=== PATIENT | male | born 1970 | race American Indian/Alaskan Native ===

== ENCOUNTER 2016-09-16 10:58 | Emergency (ER) | payer OTHER ==
--- NOTE | 2016-09-16 16:30 | Emergency Department Report ---
ED Extremity Problem HPI - General Chief complaint: Pain General Stated complaint: SWELLING/PAIN IN JOINTS/RIGHT FOOT Time Seen by Provider: 09/16/16 16:24 Source: patient Mode of arrival: Ambulatory Limitations: Physical Limitation (slight limp with walk states due to pain) - History of Present Illness Initial comments: Patient presents with right great toe and right wrist pain and mild swelling. He states that he has had gout in the past and this is his typical presentation. He denies any injuries. He has not had a flare in about one year , he states when he does get a flare he takes colchicine and a "shot" that resolves it. MD Complaint: extremity pain, extremity swelling, joint paint -: Sudden Location: right, toe (great), other (wrist) History of Same: Yes Severity scale (0 -10): 10 Quality: stabbing, sharp Consistency: constant Improves with: nothing Worsens with: weight bearing Associated Symptoms: denies other symptoms - Related Data Home Medications Medication Instructions Recorded Confirmed Last Taken Isosorbide Dinitrate [Isordil 5 mg PO DAILY 09/16/16 09/16/16 09/16/16 Titradose] Metoprolol [Lopressor] 100 mg PO BID 09/16/16 09/16/16 09/16/16 cloNIDine [Catapres] 0.1 mg PO BID 09/16/16 09/16/16 09/16/16 hydrALAZINE [Apresoline TAB] 100 mg PO QID 09/16/16 09/16/16 09/16/16 Previous Rx's Medication Instructions Recorded Last Taken Type Colchicine 0.6 mg PO DAILY PRN #4 tablet 09/16/16 Unknown Rx Allergies Allergy/AdvReac Type Severity Reaction Status Date / Time ceftriaxone sodium Allergy Hives Verified 09/16/16 16:43 [From Rocephin] ED Review of Systems ROS: Stated complaint: SWELLING/PAIN IN JOINTS/RIGHT FOOT Other details as noted in HPI Constitutional: denies: chills, fever Eyes: denies: eye pain, eye discharge, vision change ENT: denies: ear pain, throat pain Respiratory: denies: cough, shortness of breath, wheezing Cardiovascular: denies: chest pain, palpitations Gastrointestinal: denies: abdominal pain, nausea, diarrhea Musculoskeletal: as per HPI Skin: denies: rash, lesions Neurological: denies: headache, weakness, paresthesias ED Past Medical Hx - Past Medical History Hx Hypertension: Yes - Surgical History Past Surgical History?: No - Social History Smoking Status: Never Smoker Substance Use Type: None - Medications Home Medications: Home Medications Medication Instructions Recorded Confirmed Last Taken Type Colchicine 0.6 mg PO DAILY PRN #4 tablet 09/16/16 Unknown Rx Isosorbide Dinitrate [Isordil 5 mg PO DAILY 09/16/16 09/16/16 09/16/16 History Titradose] Metoprolol [Lopressor] 100 mg PO BID 09/16/16 09/16/16 09/16/16 History cloNIDine [Catapres] 0.1 mg PO BID 09/16/16 09/16/16 09/16/16 History hydrALAZINE [Apresoline TAB] 100 mg PO QID 09/16/16 09/16/16 09/16/16 History ED Physical Exam - General Limitations: No Limitations General appearance: alert, in no apparent distress - Head Head exam: Present: atraumatic, normocephalic - Eye Eye exam: Present: normal appearance - Neck Neck exam: Present: normal inspection - Respiratory Respiratory exam: Present: normal lung sounds bilaterally. Absent: respiratory distress - Cardiovascular Cardiovascular Exam: Present: regular rate, normal rhythm. Absent: systolic murmur, diastolic murmur, rubs, gallop - Extremities Exam Extremities exam: Present: normal inspection, full ROM - Expanded Upper Extremity Exam Right Upper Arm exam: Present: normal inspection, full ROM Elbow exam: Present: normal inspection, full ROM Forearm Wrist exam: Present: normal inspection, full ROM, tenderness, swelling ( mild) Hand Wrist exam: Present: normal inspection, full ROM, tenderness Neuro motor exam: Present: wrist extension intact, thumb adduction intact Neurosensory exam: Present: radial nerve intact, ulnar nerve intact Vascular: Absent: vascular compromise - Expanded Lower Extremity Exam Right Knee exam: Present: normal inspection, full ROM Lower Leg exam: Present: normal inspection, full ROM Ankle exam: Present: normal inspection, full ROM Foot/Toe exam: Present: normal inspection, full ROM, tenderness (great toe, warmth present) Neuro vascular tendon exam: Present: no vascular compromise Gait: Positive: observed and limited by pain - Neurological Exam Neurological exam: Present: alert, oriented X3 - Psychiatric Psychiatric exam: Present: normal affect, normal mood - Skin Skin exam: Present: warm, dry, intact, normal color, erythema (mild at great toe ). Absent: rash ED Course Vital Signs 09/16/16 09/16/16 09/16/16 11:44 16:41 17:04 Temperature 98.8 F Pulse Rate 125 H 126 H 126 H Respiratory 18 20 Rate Blood Pressure 198/154 209/143 Blood Pressure 209/143 [Right] O2 Sat by Pulse 96 94 Oximetry 09/16/16 09/16/16 09/16/16 18:16 19:01 20:04 Temperature 98.5 F Pulse Rate 103 H 103 H 111 H Respiratory 20 111 H Rate Blood Pressure 194/129 Blood Pressure 194/129 187/112 [Right] O2 Sat by Pulse 95 96 Oximetry 09/16/16 20:31 Temperature Pulse Rate 111 H Respiratory Rate Blood Pressure 187/112 Blood Pressure [Right] O2 Sat by Pulse Oximetry - Reevaluation(s) Reevaluation #1: 09/16/16 20:[address] Miller about patient's bp, now 187/112, he informs to give labetalol IV 10mg Reevaluation #2: 09/16/16 21:43 last bp 158/102 ED Medical Decision Making - Lab Data Result diagrams: 09/16/16 17:00 09/16/16 17:00 - Medical Decision Making Patient presents with his typical symptoms of gout. Patient received dexamethasone IM x 1. I will give colchicine rx and advise him to f/u with his primary care physician. CBC, CMP shows elevated h/h, will advise to increase fluid intake. He is positive for hypertension which he states he takes hydralazine, metoprolol , isosorbide. I will advise him to monitor his bp closely at home and f/u with his PCP in 2-3 days for recheck. - Differential Diagnosis gout, fracture, hypertension Critical Care Time: No Critical care attestation.: If time is entered above; I have spent that time in minutes in the direct care of this critically ill patient, excluding procedure time. ED Disposition Clinical Impression: Gout attack, Hypertension Disposition: DISCHARGED TO HOME OR SELFCARE Is pt being admited?: No Does the pt Need Aspirin: No Condition: Stable Instructions: Hypertension (ED), Acute Gouty Arthritis (ED), Self-Care Measures with a Chronic Disease (ED) Additional Instructions: Follow-up with primary care as discussed for gout and hypertension. Monitor blood pressure closely at home and follow up with PCP within one to 2 days for BP recheck Prescriptions: Colchicine 0.6 mg PO DAILY PRN #4 tablet PRN Reason: gout pain Referrals: PRIMARY CARE, [Primary Care Provider] - 3-5 Days Forms: Work/School Release Form(ED) Time of Disposition: 21:38
[2016-09-16] MEDS ORDERED: DECADRON IV ONE (16:45)
[2016-09-16] MEDS ORDERED: INDOCIN PO ONE (16:45)
[2016-09-16] MEDS ORDERED: COLCRYS PO ONE (16:45)
[2016-09-16] MEDS ORDERED: CATAPRES PO ONE ×2 (16:45→18:32)
[2016-09-16] MEDS ORDERED: DECADRON IM ONE (17:05)
[2016-09-16 17:13] LABS: Eosinophils % (Auto) 1.1 % (0.0-4.3); Hematocrit 53.9 % (35.5-45.6); Hemoglobin 17.3 gm/dl (11.8-15.2); Mean Corpuscular HGB Conc 32 % (32-34); Mean Corpuscular Hemoglobin 26 pg (28-32); Mean Corpuscular Volume 82 fl (84-94); Platelet Count 214 K/mm3 (140-440); Red Blood Count 6.56 M/mm3 (3.65-5.03); White Blood Count 6.5 K/mm3 (4.5-11.0)
[2016-09-16 17:36] LABS: Alanine Aminotransferase 26 units/L (7-56); Albumin 4.2 g/dL (3.9-5); Alkaline Phosphatase 110 units/L (35-129); Anion Gap 18 mmol/L; BUN/Creatinine Ratio 12.72; Bilirubin,Total 1.2 mg/dL (0.1-1.2); Blood Urea Nitrogen 14 mg/dL (9-20); Calcium 9.7 mg/dL (8.4-10.2); Carbon Dioxide 30 mmol/L (22-30); Glucose 110 mg/dL (75-100); Potassium 4.3 mmol/L (3.6-5.0); Sodium 140 mmol/L (137-145); Total Protein 8.6 g/dL (6.3-8.2); Uric Acid 8.7 mg/dL (3.5-7.6)
[2016-09-16] MEDS ORDERED: NORMODYNE IV ONE (20:05)
[2016-09-16 21:51] VITALS: BP 158/102
== END 2016-09-16 21:58 | disposition home or self-care (01) ==
LOC: ED 10:58
DX: M10.9 Gout, unspecified (principal); I10 Essential (primary) hypertension; Z88.1 Allergy status to other antibiotic agents
CPT/HCPCS: 36415; 80053; 84550; 85025; 96372; 96374; 99283; J1100

== ENCOUNTER 2016-10-14 12:51 | Outpatient (CLI) | payer OTHER ==
--- NOTE | 2016-10-14 14:01 | XRay Report ---
CHEST 2 VIEWS INDICATION: Shortness of breath, hemoptysis. COMPARISON: None similar at this institution. FINDINGS: PA and lateral chest radiographs demonstrate left more than right perihilar hazy air space opacities measuring up to 5.3 x 4.5 cm on the left and lighltly obscuring the left hilum. Bilateral hilar lymphadenopathy also not excluded. Top normal heart size. No large pleural effusions or CHF. Unremarkable bones. CONCLUSION: Subtle perihilar hazy airspace opacities and possible lymphadenopathy, as described. Please also correlate clinically, with prior chest imaging if available or further with contrasted chest CT to evaluate for various possibilities including sarcoidosis versus pulmonary edema or malignancy, amongst others. Thank you for the opportunity to participate in this patient's care.
== END 2016-10-14 12:52 | disposition home or self-care (01) ==
LOC: XRAY 12:51
PROVIDERS: ATTEND Internal Medicine
DX: R04.2 Hemoptysis (principal); R06.02 Shortness of breath; R59.1 Generalized enlarged lymph nodes
CPT/HCPCS: 71020